=== PATIENT | male | born 1980 | race African-American/Black ===

== ENCOUNTER 2020-06-25 09:00 | Emergency (ER) | payer SELFPAY ==
--- NOTE | 2020-06-25 09:07 | ED.GENADULT ---
HPI - General Adult General Chief complaint: Dizziness Stated complaint: DIZZY Time Seen by Provider: 06/25/20 09:07 Source: patient and RN notes reviewed Mode of arrival: ambulatory Limitations: no limitations History of Present Illness HPI narrative: 39-year-old -[place] male presents with complaints of dizziness that has been going on for the past 5 days. Letitia reports increasing symptoms increased today, consisted on intermittent nausea and vomiting. Pedialyte and increase water intake without relief. Similar episode months ago relieved with Pedialyte. Exacerbating factors consist of changing position too fast turning head from side to side too fast. Relieving factors is sitting still. Denies ear pain, ear itching, ear trauma, trauma to head, syncopal episodes, altered vision, altered speech, confusion, or seizure activity. Denies headache, numbness or tingling in extremities. Denies chest pain or dyspnea. Denies URI symptoms, fever, or chills. Tolerating p.o. intake well. Remains active. The patient reports he have not been diagnosed with COVID-19. The patient reports he is not waiting for the results of a COVID-19 lab test. The patient reports he do not have weakness or fatigue. The patient reports he do not have a new or worsening cough or shortness of breath. Denies chest pain. The patient reports he do not have any rhinorrhea, congestion, loss of taste or smell, sore throat, abdominal pain, and diarrhea. Denies recent traveling. Denies concerns for COVID-19 or exposures been home with limited outdoor exposure except for essential household needs, work, and return home. At this time, patient is not suspected of having COVID-19. Some parts of this dictation were generated by voice recognition software and may contain typographical and/or grammatical inaccuracies. Related Data Allergies Allergy/AdvReac Type Severity Reaction Status Date / Time No Known Allergies Allergy Verified 06/25/20 09:08 Review of Systems Review of Systems: Narrative: CONSTITUTIONAL: Denies fever, chills, sweats. EYES: Denies visual changes, redness, discharge. ENT: Denies rhinorrhea, congestion, sore throat, otalgia. CARDIOVASCULAR: Denies chest pain, palpitations, edema. RESPIRATORY: Denies dyspnea, wheezing, cough. GASTROINTESTINAL: Denies abdominal pain, diarrhea. Complains of intermittent nausea, vomiting, decrease po intake. SKIN: Denies lesions, itching, drainage. MUSCULOSKELETAL: Denies acute back pain, joint pain, or myalgia. NEUROLOGIC: Denies numbness or focal weakness. Complains of dizziness. PSYCHIATRIC: Denies anxiety or depression. All systems reviewed & are unremarkable except as noted in HPI and below. [facility] Past Medical History Medical History (Updated 06/27/20 @ 00:00 by Dany Garg) Fatty tumor mid abdomen Left knee pain Surgical History Surgical History (Updated 06/25/20 @ 09:35 by MAE Burdick) History of left knee surgery ACL repair Family History Family History (Updated 06/25/20 @ 09:35 by MAE Burdick) Father Acute myocardial infarction Cerebrovascular accident Mother Alive and well Social History Social History (Updated 06/25/20 @ 09:37 by MAE Burdick) Smoking status: Current every day smoker Tobacco type: cigars Second hand tobacco smoke exposure: No Additional smoking assessment comments: smoked cigarettes for 2-3 years then started bluts 2 daily since 15 yrs old Alcohol intake: former Substance use: current Substance use type: marijuana Comments At time of signature, agree with nurse past medical, surgical, social, and family history. There is no relevant family history pertinent to the presenting complaint. Exam Narrative: Exam Narrative: GENERAL: This is a well-nourished, well-developed patient, in no apparent distress. Talks in full sentences and ambulates with steady gait without dyspnea. HEAD: Normocephalic, atraumatic.
[2020-06-25 09:13] VITALS: BP 148/93; PULSE 60; RESP 18; TEMP 36.2; O2SAT 100
[2020-06-25 09:46] VITALS: BP 128/80; BP 140/87; PULSE 53; PULSE 58
[2020-06-25 09:47] VITALS: BP 128/80; PULSE 53
[2020-06-25] MEDS: ONDANSETRON HCL ODT 4 MG TABLET PO (09:48)
[2020-06-25] MEDS: MECLIZINE HCL 25 MG TABLET 50 MG PO (09:48)
[2020-06-25 09:50] VITALS: BP 140/87; BP 148/91; PULSE 58; PULSE 64
--- NOTE | 2020-06-25 09:50 | ECG_ITS ---
Measurements Intervals [place] Rate: 57 P: 58 NH: 179 QRS: 32 QRSD: 116 T: 39 QT: 398 QTc: 389 Interpretive Statements SINUS BRADYCARDIA INCOMPLETE RIGHT BUNDLE BRANCH BLOCK BORDERLINE ECG Electronically Signed On 06-25-2020 10:02:32 CDT by Gilbert Desai D.O.
[2020-06-25 09:51] LABS: Glucose Point of Care 78 (65-105)
== END 2020-06-25 10:20 | disposition home or self-care (01) ==
PROVIDERS: Emergency Provider Nurse Practitioner Family
DX: H81.10 Benign paroxysmal vertigo, unspecified ear (principal); I45.10 Unspecified right bundle-branch block
CPT/HCPCS: 82948; 93005; 99213; A9270; G0463

== ENCOUNTER 2020-06-26 20:54 | Emergency (ER) | payer SELFPAY ==
[2020-06-26 20:57] VITALS: BP 143/85; PULSE 60; RESP 18; TEMP 35.6; O2SAT 100
[2020-06-26] MEDS: ONDANSETRON INJ 4 MG/2 ML VIAL IV PUSH (21:48)
[2020-06-26] MEDS: diazePAM INJ (*CRX) 10 MG/2 ML SYRINGE 5 MG IV PUSH (21:49)
[2020-06-26] MEDS: SODIUM CHLORIDE 0.9% IV 1,000 ML 999 ML IV CONT (21:49)
--- NOTE | 2020-06-26 23:23 | ED.DIZZY ---
HPI - Dizziness General Chief Complaint: Dizziness Stated Complaint: dizziness, nausea Time Seen by Provider: 06/26/20 21:20 History of Present Illness HPI Narrative: Patient is a 39-year-old male who presents ER with dizziness. Ongoing over the last week. Worse when he moves his head or leans forward. Occasionally associated with nausea and vomiting. It is increased over the last couple days. He has been taking meclizine for the symptoms which only mildly helps. No new sinus congestion or sore throat or productive cough. No numbness or tingling in arm or leg. Denies fevers or chills or sweats. Has had this intermittently over the last year but this is the worst episode. Related Data Allergies Allergy/AdvReac Type Severity Reaction Status Date / Time No Known Allergies Allergy Verified 06/25/20 09:08 Review of Systems Constitutional: Constitutional: Denies chills and Denies fever(s) Eyes: Eyes: Denies change in vision and Denies photophobia ENT: Reports dizziness and Denies sore throat Comments: No ear pain Gastrointestinal: Gastrointestinal: Denies abdominal pain, Reports nausea and Reports vomiting Neurologic: Denies headache(s), Denies focal weakness, Denies tingling, Denies paresthesias and Denies weakness PMFSH Past Medical History Medical History (Updated 06/26/20 @ 23:24 by Boris Sanches MD) Fatty tumor mid abdomen Left knee pain Surgical History Surgical History (Updated 06/25/20 @ 09:35 by MAE Burdick) History of left knee surgery ACL repair Family History Family History (Updated 06/25/20 @ 09:35 by MAE Burdick) Father Acute myocardial infarction Cerebrovascular accident Mother Alive and well Social History Social History (Updated 06/25/20 @ 09:37 by MAE Burdick) Smoking status: Current every day smoker Tobacco type: cigars Second hand tobacco smoke exposure: No Additional smoking assessment comments: smoked cigarettes for 2-3 years then started bluts 2 daily since 15 yrs old Alcohol intake: former Substance use: current Substance use type: marijuana Exam Narrative: Exam Narrative: GENERAL: Well-appearing, well-nourished, and in no acute distress. HEAD: Normocephalic, atraumatic. EYES: PERRLA and EOMI. left gaze nystagmus. ENT: Mucous membranes moist. Normal-appearing posterior oropharynx. TMs normal bilaterally without evidence of infection or cerumen impaction. CHEST: Clear to auscultation. No respiratory distress. HEART: Regular rate and rhythm. Normal peripheral pulses. EXTREMITIES: Normal range of motion. No edema. NEURO: Gaze nystagmus. Alert and oriented x3. PSYCH: Normal mood and affect. Course Course Emergency Course: Patient improved with time and IV fluids. Discharge home and continue meclizine. Vital Signs Vital signs: Vital Signs Temperature 96.0 F L 06/26/20 20:57 Pulse Rate 60 06/26/20 20:57 Respiratory Rate 18 06/26/20 20:57 Blood Pressure 143/85 H 06/26/20 20:57 Pulse Oximetry 100 06/26/20 20:57 Temperature 96.0 F L 06/26/20 20:57 Pulse Rate 60 06/26/20 20:57 Respiratory Rate 18 06/26/20 20:57 Blood Pressure 143/85 H 06/26/20 20:57 Pulse Oximetry 100 06/26/20 20:57 Discharge Plan Discharge Clinical Impression: Benign paroxysmal positional vertigo Patient Disposition: Home, Self-Care Condition: Stable Instructions: Benign Paroxysmal Positional Vertigo (ED) Additional Instructions: Return the ER if you have focal weakness in arm or leg, you cannot keep down food or water, you have chest pain or shortness of breath, you have additional concerns. Continue to take your meclizine at home. Follow-up with ENT for further treatment evaluation. Prescriptions: No Action ondansetron HCl [Zofran] 4 mg tablet 4 mg PO Q6H PRN (Reason: nausea and vomiting) Qty: 30 RF: 0 meclizine 25 mg tablet 25 mg PO TID PRN (Reason: dizziness or vertigo) Qty: 30 RF: 0
[2020-06-26 23:31] VITALS: BP 131/77; PULSE 78; RESP 16; TEMP 36.2; O2SAT 98
== END 2020-06-26 23:32 | disposition home or self-care (01) ==
PROVIDERS: Emergency Provider Emergency Medicine
DX: H81.10 Benign paroxysmal vertigo, unspecified ear (principal); F17.290 Nicotine dependence, other tobacco product, uncomplicated
CPT/HCPCS: 96361; 96374; 96375; 99284; J2405; J3360; J7030

== ENCOUNTER 2021-12-23 18:23 | Emergency (ER) | payer OTHER, SELFPAY ==
--- NOTE | 2021-12-23 18:44 | ED.URI ---
HPI - URI/Sore Throat General Chief Complaint: Upper Respiratory Infection Stated Complaint: + covid Time Seen by Provider: 12/23/21 18:44 Source: patient and RN notes reviewed Mode of arrival: ambulatory Limitations: no limitations History of Present Illness HPI Narrative: 41-year-old male presents with concern for headache, vomiting yesterday. Reports he took Aleve with relief. Reports he took a COVID test which was positive. He denies current symptoms. MD elicited complaint: other (Headache) Related Data Allergies Allergy/AdvReac Type Severity Reaction Status Date / Time No Known Allergies Allergy Verified 12/23/21 18:38 Review of Systems Review of Systems: CONSTITUTIONAL: Denies malaise, chills, sweats, or fever. EYES: Denies visual changes, redness, or discharge. ENT: Denies rhinorrhea, congestion, sinus pain, otalgia and sore throat. CARDIOVASCULAR: Denies chest pain, palpitations, or edema. RESPIRATORY: Denies cough. Denies dyspnea. GASTROINTESTINAL: Denies abdominal pain, nausea, vomiting, diarrhea SKIN: Denies rash or itching. MUSCULOSKELETAL: Denies myalgia. NEUROLOGIC: Denies headache. All systems reviewed & are unremarkable except as noted in HPI and below PMFSH Past Medical History Medical History (Updated 12/23/21 @ 18:52 by Shayy Sifuentes NP) Fatty tumor mid abdomen Left knee pain Surgical History Surgical History (Updated 06/25/20 @ 09:35 by MAE Burdick) History of left knee surgery ACL repair Family History Family History (Updated 06/25/20 @ 09:35 by MAE Burdick) Father Acute myocardial infarction Cerebrovascular accident Mother Alive and well Social History Social History (Updated 06/25/20 @ 09:37 by MAE Burdick) Smoking status: Current every day smoker Tobacco type: cigars Second hand tobacco smoke exposure: No Additional smoking assessment comments: smoked cigarettes for 2-3 years then started bluts 2 daily since 15 yrs old Alcohol intake: former Substance use: current Substance use type: marijuana Sexual Orientation (if Verbalized by the Patient): Straight or Heterosexual Comments At time of signature, agree with nursing past medical, surgical, social and family history. There is no relevant family history pertinent to the presenting complaint Exam Narrative: GENERAL: Well-appearing, well-nourished, and in no acute distress. HEAD: Normocephalic EYES: PERRLA, conjunctivae clear ENT: Nares clear. Mucous membranes moist. TM pearly pickett with dull light reflex bilaterally; no tragal tenderness. Oropharynx not erythematous without lesions. Tonsils not enlarged and without exudate, no drooling, no hoarseness, no trismus, uvula midline. NECK: Supple. No lymphadenopathy CHEST: Clear to auscultation, breath sounds equal. No wheezing, rhonchi, rales, or stridor. No respiratory distress, speaks in full sentences. HEART: Regular rate and rhythm. No murmur heard. SKIN: Warm, dry, no rash. NEURO: Alert and oriented x3. PSYCH: Normal mood and affect Course Course Emergency Course: Discussed paxlovid with patient, discussed his lack of symptoms, patient was still like to be prescribed Paxil Lopid symptoms get worse Patient is aware of diagnosis, understands and agrees to treatment plan. Anticipatory guidance given. Patient agrees to follow-up as directed and is aware of reasons to seek care at the emergency department. Portions of this record may have been created with voice recognition software Level of Care: Express Care Visit Vital Signs Vital signs: Reviewed. MDM - URI/Sore Throat MDM Narrative Medical decision making narrative: Differential diagnosis considered: Dasilva virus, strep pharyngitis, allergic rhinitis, upper respiratory tract infection, sinusitis, rhinosinusitis, nasopharyngitis. viral pharyngitis, otitis media, otitis externa, pneumonia, bronchitis, viral cough syndrome, viral syndrome, and influenza. E
[2021-12-23 18:46] VITALS: BP 138/98; PULSE 78; RESP 16; TEMP 37.5; O2SAT 100
== END 2021-12-23 19:00 | disposition home or self-care (01) ==
PROVIDERS: Emergency Provider Nurse Practitioner
DX: U07.1 COVID-19 (principal); F17.290 Nicotine dependence, other tobacco product, uncomplicated; F12.90 Cannabis use, unspecified, uncomplicated
CPT/HCPCS: 87426; 99213; C9803; G0463